=== PATIENT | female | born 1990 | race Caucasian/White ===

== ENCOUNTER 2018-01-29 14:51 | Emergency (ER) | payer OTHER, MEDICAID, SELFPAY ==
--- NOTE | 2018-01-29 14:56 | ED.FEVER ---
HPI - Fever General Stated Complaint: FEVER,NOT FEELING WELL Time Seen by Provider: 01/29/18 14:54 Related Data Previous Rx's Medication Instructions Recorded ferrous sulfate [Iron (ferrous 325 mg PO BID #60 tab 05/25/16 sulfate)] topiramate [Topamax] 200 mg PO QDAY #30 tab 07/09/16 clonidine [Obdsknmc-UJG-2] 0.3 mg TD QWEEK #4 patch 09/03/16 sertraline 200 mg PO QDAY #60 tab 10/13/16 gabapentin [Neurontin] 0 PO BID #90 cap 07/08/17 omeprazole 20 mg PO QDAY #30 tab 07/08/17 trazodone 150 mg PO HS #90 tab 07/08/17 bupropion HCl SR 100 mg tablet,12 100 mg PO DAILY #30 tab 01/11/18 hr sustained-release enalapril maleate 10 mg tablet 30 mg PO Q DAY #90 tab 01/11/18 hydrocodone 5 mg-acetaminophen 325 1 tab PO Q6 PRN #40 tab 01/11/18 mg tablet Allergies Allergy/AdvReac Type Severity Reaction Status Date / Time No Known Allergies Allergy Uncoded 01/11/18 09:51 PFSH Medical History Migraine without status migrainosus, not intractable (Chronic 01/15/16) Essential hypertension (Chronic 03/09/16) Anxiety (Chronic 2011) Clostridium difficile infection (Chronic) Depression (Chronic 2011) Hypertension (Chronic 2014) Migraines (Chronic 2014) C. difficile colitis (Resolved) Pneumonia (Resolved 07/13/13) Preeclampsia in period (Resolved 2014) Vaginal delivery (Resolved) Surgical History Anesthesia (Resolved) History of third molar tooth extraction (Resolved) Status post delivery (Resolved 12/21/15) Status post tubal ligation (Resolved 03/13/16) Social History marital status: unmarried,single number of children: 3 household members: family and children pets and animals: Yes education level: college occupational status: employed leisure activities: art and music other: friends seatbelt use: always water heater temp set < 120 deg: Yes working smoke detector in home: Yes fire extinguisher in home: Yes carbon monox detector in home: No firearms in home: Yes do you feel safe at home: Yes Smoking Status: Current every day smoker substance use type: marijuana during the past year weight has: remained stable well-balanced diet: about half the time daily servings fruits/ve-4 caffeine: Yes eating out: rarely or never Type(s) of exercise: walking frequency: 3-4 times per week duration: 30-45 minutes/day Discharge Plan Departure Prescriptions: No Action ferrous sulfate [Iron (ferrous sulfate)] 325 MG tablet 325 mg PO BID Qty: 60 RF: 0 topiramate [Topamax] 200 MG tablet 200 mg PO QDAY Qty: 30 RF: 0 clonidine [[id number]-JHH-9] 0.3 MG/24 HR patch weekly 0.3 mg TD QWEEK Qty: 4 RF: 12 sertraline 100 MG tablet 200 mg PO QDAY Qty: 60 RF: 3 omeprazole 20 MG tablet,delayed release (DR/EC) 20 mg PO QDAY Qty: 30 RF: 13 trazodone 150 MG tablet 150 mg PO HS Qty: 90 RF: 3 gabapentin [Neurontin] 300 MG capsule PO BID Qty: 90 RF: 6 hydrocodone-acetaminophen [[place]] 5-325 mg tablet 1 tab PO Q6 PRN (Reason: PAIN) Qty: 40 RF: 0 enalapril maleate 10 mg tablet 30 mg PO Q DAY Qty: 90 RF: 1 bupropion HCl 100 mg tablet extended release 12 hr 100 mg PO DAILY Qty: 30 RF: 1
--- NOTE | 2018-01-29 15:03 | ED_ITS ---
HPI - Fever General Chief Complaint: Fever Stated Complaint: FEVER,NOT FEELING WELL Time Seen by Provider: 01/29/18 14:53 Source: patient and family Mode of arrival: ambulatory Limitations: no limitations History of Present Illness HPI Narrative: 27F with longstanding hypertension and chronic pain presents to the emergency department with continued widespread pain. She was sent by the walk-in clinic after she had mentioned that she has had a low-grade fever for the past few weeks and also had neck pain, she was unable to mention that she has also had shoulder pain, elbow pain, hip pain, and foot pain which has been going on for quite some time. She sees Rheumatology for the symptoms and has an upcoming appointment. She had been on a pain control plan that was working quite well for about a year and a half which included oxycodone and even decrease to hydrocodone at the beginning of summer but now is the weather changing she seems to have more pain. She is presenting with a request to help with her pain. She denies headache or blurred vision. She denies any numbness , tingling or weakness. She has had no nausea or vomiting. She states this feels nothing like it. She has had some runny nose and congestion and is just getting over a cough but otherwise no other possible sources for infection. She denies chest pain or shortness of breath. She denies abdominal pain or diarrhea. She denies dysuria, frequency or urgency MD complaint: fever Onset (ago): week(s) Temperature Source: oral Associated symptoms: denies other symptoms Relieving factors: nothing Exacerbating factors: nothing Treatments prior to arrival fever: none Related Data Previous Rx's Medication Instructions Recorded ferrous sulfate [Iron (ferrous 325 mg PO BID #60 tab 05/25/16 sulfate)] topiramate [Topamax] 200 mg PO QDAY #30 tab 07/09/16 clonidine [Gaukvvjf-VQW-1] 0.3 mg TD QWEEK #4 patch 09/03/16 sertraline 200 mg PO QDAY #60 tab 10/13/16 gabapentin [Neurontin] 0 PO BID #90 cap 07/08/17 omeprazole 20 mg PO QDAY #30 tab 07/08/17 trazodone 150 mg PO HS #90 tab 07/08/17 bupropion HCl SR 100 mg tablet,12 100 mg PO DAILY #30 tab 01/11/18 hr sustained-release enalapril maleate 10 mg tablet 30 mg PO Q DAY #90 tab 01/11/18 hydrocodone 5 mg-acetaminophen 325 1 tab PO Q6 PRN #40 tab 01/11/18 mg tablet ketorolac 10 mg PO Q4-6H PRN 2 Days tab 01/29/18 prednisone 10 mg PO DAILY #30 tab 01/29/18 Allergies Allergy/AdvReac Type Severity Reaction Status Date / Time No Known Drug Allergies Allergy Verified 01/29/18 15:51 Review of Systems Review of Systems All systems reviewed & are unremarkable except as noted in HPI and below Constitutional Denies chills, Reports fever(s), Denies lethargy and Denies weakness Eyes Denies change in vision, Denies eye discharge, Denies irritation and Denies loss of vision ENT Ears, Nose, Mouth, and Throat: Denies change in voice, Denies neck pain and Denies sore throat Cardiovascular Denies chest pain, Denies irregular heart rhythm, Denies lightheadedness, Denies palpitations, Denies dyspnea, Denies dyspnea on exertion and Denies orthopnea Respiratory Denies cough, Denies dyspnea, Denies dyspnea on exertion and Denies wheezing Gastrointestinal Gastrointestinal: Denies abdominal pain, Denies change in bowel habits, Denies diarrhea, Denies nausea and Denies vomiting Genitourinary Denies hematuria, Denies flank pain, Denies urinary incontinence and Denies urinary urgency Musculoskeletal Reports arthralgias and Denies neck pain Comments: Widespread joint and muscle pain Integumentary/Breasts Denies pruritus, Denies erythema, Denies rash and Denies wounds Neurologic Denies confusion, Denies loss of vision and Denies weakness Psychiatric Denies anxiety, Denies confusion, Denies depression, Denies homicidal ideation and Denies suicidal ideation Endocrine Denies palpitations Hematologic/Lymphatic Denies easy bruising Allergic/Immunologic Denies wheezing [facility] Medical History Migraine without status migrainosus, not intractable (Chronic 01/15/16) Essential hypertension (Chronic 03/09/16) Anxiety (Chronic 2011) Clostridium difficile infection (Chronic) Depression (Chronic 2011) Hypertension (Chronic 2014) Migraines (Chronic 2014) C. difficile colitis (Resolved) Pneumonia (Resolved 07/13/13) Preeclampsia in period (Resolved 2014) Vaginal delivery (Resolved) Surgical History Anesthesia (Resolved) History of third molar tooth extraction (Resolved) Status post delivery (Resolved 12/21/15) Status post tubal ligation (Resolved 03/13/16) Family History Mother Cancer Hypertension Brain cancer Lung cancer Melanoma Father No problems noted. Social History marital status: unmarried,single number of children: 3 household members: family and children pets and animals: Yes education level: college occupational status: employed leisure activities: art and music other: friends seatbelt use: always water heater temp set < 120 deg: Yes working smoke detector in home: Yes fire extinguisher in home: Yes carbon monox detector in home: No firearms in home: Yes do you feel safe at home: Yes Smoking Status: Current every day smoker substance use type: marijuana during the past year weight has: remained stable well-balanced diet: about half the time daily servings fruits/ve-4 caffeine: Yes eating out: rarely or never Type(s) of exercise: walking frequency: 3-4 times per week duration: 30-45 minutes/day Exam Initial Vital Signs Initial Vital Signs: Vital Signs Temperature 98.3 F 01/29/18 16:04 Pulse Rate 81 01/29/18 16:04 Respiratory Rate 17 01/29/18 16:04 Blood Pressure 155/110 H 01/29/18 16:04 Pulse Oximetry 100 01/29/18 16:04 Const General: cooperative and well developed Nutritional Appearance: well nourished Orientation: alert, awake, oriented x3 and not confused [facility] Head: normocephalic and atraumatic Ears: external ears normal and TM's normal bilaterally Nose: external nose normal and No nasal discharge Face and sinus: sinuses nontender, face symmetric, no sinus tenderness and No dry mucous membranes Mouth: oral mucosae normal and moist mucous membranes Teeth and gingiva: dentition normal Throat: tonsils normal and uvula midline Eyes General: appearance normal, both eyes and all related structures Eyelids: eyelids normal Conjunctivae: conjunctivae normal Sclera: sclerae normal Pupils: PERRL EOM: EOM intact bilaterally Neck Neck: normal visual inspection, trachea midline, No lymphadenopathy, No midline deformity and No JVD Lymphatic: No lymphedema Chest Chest: normal inspection of the chest Resp Effort & Inspection: normal respiratory effort, able to speak in complete sentences, no respiratory distress and no use of accessory muscles Auscultation: clear to auscultation bilaterally, no rales, no rhonchi and no wheezes Cardio Rate: regular rate Rhythm: regular rhythm Heart Sounds: no click, no gallops, no murmurs and no rubs Pulses: normal peripheral pulses GI Inspection: non-distended Palpation: soft, no hepatosplenomegaly, No guarding, No pulsatile mass and No tender Auscultation: normal bowel sounds Back/Spine/Pelvis Back: No CVA tenderness Cervical Spine: cervical ROM normal and No pain with cervical ROM Thoracic/Lumbar Spine: thoracic and lumbar spine normal to inspection Skin General: no rashes or lesions noted, No jaundice and No petechiae Neuro General: alert, oriented x3, gait normal and no focal motor deficits Speech: speech normal Extrem General: full ROM, no clubbing, cyanosis or edema, no pedal edema and no calf tenderness Other: Both feet are tender to touch Psych Appearance: well kempt Mental Status: mental status grossly normal Attitude: cooperative Thought Content: normal and suicidality Judgment: judgment good Course Orders Ordered: ED Orders 01/29/18 16:15 Basic Metabolic Panel Stat C-Reactive Protein Quant Stat Complete Blood Count AUTO DIFF Stat Erythrocyte Sedimentation Rate Stat 01/29/18 16:42 XR chest 2V Stat Discontinued Medications Sodium Chloride (Normal Saline 0.9%) 1,000 mls @ 1,000 mls/hr IV BOLUS ONE Stop: 01/29/18 16:44 Last Admin: 01/29/18 16:08 Dose: 1,000 mls/hr Ketorolac Tromethamine (Toradol) 15 mg IV NOW ONE Stop: 01/29/18 15:46 Last Admin: 01/29/18 16:08 Dose: 15 mg Methylprednisolone (Solu-Medrol 125 Mg Vial) 125 mg IV NOW ONE Stop: 01/29/18 15:46 Last Admin: 01/29/18 16:08 Dose: 125 mg Vital Signs - 8 hr 01/29/18 16:04 01/29/18 17:04 Temperature 98.3 F Pulse Rate 81 74 Respiratory Rate 17 15 Blood Pressure [Right Arm] 155/110 H 142/91 H Pulse Oximetry 100 100 MDM - Fever Medical Records Attestation: I reviewed the patient's medical records. Lab Data Attestation: I reviewed the patient's lab results. Result diagrams: 01/29/18 16:15 01/29/18 16:15 Lab Results 01/29/18 01/29/18 01/29/18 Range/Units 16:15 16:15 16:15 WBC 5.0 (4.5-11.0) X10^3/uL RBC 4.55 (4.0-5.2) X10^6/uL Hgb 11.1 L (12.0-16.0) g/dL Hct 34.1 L (36-46) % MCV 75.0 L (80-100) fL MCH 24.4 L (26-34) PG MCHC 32.6 (30-36) % RDW 16.6 H (11.6-14.8) % Plt Count 269 (150-400) X10^3/uL Neut % (Auto) 60.7 (50-75) % Lymph % (Auto) 29.6 (25-40) % [place] % (Auto) 6.3 (3-14) % Eos % (Auto) 2.3 (2-4) % Baso % (Auto) 1.1 (0-2) % Neut # (Auto) 3000 (2907-9971) /uL ESR 8 (0-20) MM/HR Sodium (137-145) mmol/L Potassium (3.4-5.1) mmol/L Chloride (98-107) mmol/L Carbon Dioxide (22-32) mmol/L BUN (7-17) mg/dL Creatinine (0.52-1.04) mg/dL Estimated GFR (>60) mL/min BUN/Creatinine Ratio (6-22) Glucose (70-100) mg/dL Calcium (8.4-10.2) mg/dL C-Reactive Protein < 0.5 (<1.0) mg/dL 01/29/18 Range/Units 16:15 WBC (4.5-11.0) X10^3/uL RBC (4.0-5.2) X10^6/uL Hgb (12.0-16.0) g/dL Hct (36-46) % MCV (80-100) fL MCH (26-34) PG MCHC (30-36) % RDW (11.6-14.8) % Plt Count (150-400) X10^3/uL Neut % (Auto) (50-75) % Lymph % (Auto) (25-40) % [place] % (Auto) (3-14) % Eos % (Auto) (2-4) % Baso % (Auto) (0-2) % Neut # (Auto) (1023-6768) /uL ESR (0-20) MM/HR Sodium 143 (137-145) mmol/L Potassium 4.0 (3.4-5.1) mmol/L Chloride 105 (98-107) mmol/L Carbon Dioxide 25 (22-32) mmol/L BUN 17 (7-17) mg/dL Creatinine 0.60 (0.52-1.04) mg/dL Estimated GFR > 60.0 (>60) mL/min BUN/Creatinine Ratio 28.3 H (6-22) Glucose 98 (70-100) mg/dL Calcium 9.2 (8.4-10.2) mg/dL C-Reactive Protein (<1.0) mg/dL Imaging Data Chest x-ray: Radiologist's impression: [place] [address] XRay Report Signed Patient: Emily Mariscal EMR#: [id number] : 1990Acct:[id number] Age/Sex: 27 / FDate of Service: 01/29/18 Loc: ED Accession Number: [id number] Procedure: XR chest 2V Ordering Provider: Sanket Nguyen D.O. PROCEDURE: XR CHEST 2V INDICATIONS: Short of breath TECHNIQUE: 2 views of the chest were acquired. COMPARISON: [facility], CHEST 2 VIEW, 12/19/2013, 16:15. [facility], CHEST 1 VIEW, 10/13/2014, 21:59. [facility], CHEST 2 VIEW, 03/30/2017, 10:26. FINDINGS: Surgical changes and devices: None. Lungs and pleura: No pleural effusions or pneumothorax. Lungs are clear. Mediastinum: Mediastinal contours are normal. Heart size is normal. Bones and chest wall: No suspicious bony abnormalities. Soft tissues appear unremarkable. IMPRESSION: No acute cardiopulmonary process is seen. Dictated by: Yordy Granados M.D. on 01/29/2018 at 16:57 Approved by: Yordy Granados M.D. on 01/29/2018 at 16:58 Discharge Plan Departure Patient Disposition: Home Clinical Impression: Chronic pain disorder Discharge Date/Time: 01/29/18 17:45 Interventions: ED Discharge Assessment Last Done: 01/29/18 18:04 Instructions: DI for Foot Pain Activity Restrictions/Additional Instructions: *You have been diagnosed with [ chronic foot pain and history of fever ] *What to do: *Take medications as directed *Follow up with your primary care doctor in a few days and a retread supervisor as scheduled. Please let them both note that you are in the emergency department today so you can perhaps get in sooner or at minimum let them know you were seen *Return to ER if you should have any new, worsening or concerning symptoms Prescriptions: New prednisone 10 mg tablet 10 mg PO DAILY Qty: 30 RF: 0 ketorolac 10 mg tablet 10 mg PO Q4-6H PRN (Reason: pain) 2 Days RF: 0 No Action ferrous sulfate [Iron (ferrous sulfate)] 325 MG tablet 325 mg PO BID Qty: 60 RF: 0 topiramate [Topamax] 200 MG tablet 200 mg PO QDAY Qty: 30 RF: 0 clonidine [Ftsjshku-IMU-1] 0.3 MG/24 HR patch weekly 0.3 mg TD QWEEK Qty: 4 RF: 12 sertraline 100 MG tablet 200 mg PO QDAY Qty: 60 RF: 3 omeprazole 20 MG tablet,delayed release (DR/EC) 20 mg PO QDAY Qty: 30 RF: 13 trazodone 150 MG tablet 150 mg PO HS Qty: 90 RF: 3 gabapentin [Neurontin] 300 MG capsule PO BID Qty: 90 RF: 6 hydrocodone-acetaminophen [[place]] 5-325 mg tablet 1 tab PO Q6 PRN (Reason: PAIN) Qty: 40 RF: 0 enalapril maleate 10 mg tablet 30 mg PO Q DAY Qty: 90 RF: 1 bupropion HCl 100 mg tablet extended release 12 hr 100 mg PO DAILY Qty: 30 RF: 1 Referrals: Shellie Desouza MD [Primary Care Provider] -
[2018-01-29 16:04] VITALS: BP 155/110; PULSE 81; RESP 17; TEMP 36.8; O2SAT 100
[2018-01-29] MEDS: methylPREDNISolone 125 MG/2 ML VIAL IV (16:08)
[2018-01-29] MEDS: SODIUM CHLORIDE 0.9% 1,000 ML 1000 ML IV (16:08)
[2018-01-29] MEDS: KETOROLAC 60 MG/2 ML VIAL 15 MG IV (16:08)
[2018-01-29 16:27] LABS: Add Manual Diff / Slide Review NO; Basophils Percent Auto 1.1 % (0-2); Eosinophils Percent Auto 2.3 % (2-4); Hematocrit 34.1 % (36-46); Hemoglobin 11.1 g/dL (12.0-16.0); Lymphocytes Percent Auto 29.6 % (25-40); Mean Corpuscular HGB Conc 32.6 % (30-36); Mean Corpuscular Hemoglobin 24.4 PG (26-34); Monocytes Percent Auto 6.3 % (3-14); Neutrophils Absolute Auto 3000 /uL (3000-5900); Neutrophils Percent Auto 60.7 % (50-75); Platelet Count 269 X10^3/uL (150-400); Red Blood Cell Count 4.55 X10^6/uL (4.0-5.2); Red Cell Distribution Width 16.6 % (11.6-14.8)
--- NOTE | 2018-01-29 16:27 | PC.NURSE ---
Patient reports increase pain in feet, neck and hands. Has had similar pain for some time and has a consult with rheumatoid specialist.Patient reports fevers over last week and difficulty going to work. Tearful and requesting something to help her pain. Patient took Ibuprofen and hydrocodone this morning
[2018-01-29 16:38] LABS: BUN Creatinine Ratio 28.3 (6-22); Blood Urea Nitrogen 17 mg/dL (7-17); Calcium 9.2 mg/dL (8.4-10.2); Carbon Dioxide 25 mmol/L (22-32); Chloride 105 mmol/L (98-107); Estimated Glomerular Filt Rate > 60.0 mL/min (>60); Glucose 98 mg/dL (70-100); HEMOLYSIS < 15 (0-50); Sodium 143 mmol/L (137-145)
[2018-01-29 16:42] LABS: C-Reactive Protein Quant < 0.5 mg/dL (<1.0)
--- NOTE | 2018-01-29 16:42 | DI.RAD.S_ITS ---
PROCEDURE: XR CHEST 2V INDICATIONS: Short of breath TECHNIQUE: 2 views of the chest were acquired. COMPARISON: [facility], CHEST 2 VIEW, 12/19/2013, 16:15. [facility], CHEST 1 VIEW, 10/13/2014, 21:59. [facility], CHEST 2 VIEW, 03/30/2017, 10:26. FINDINGS: Surgical changes and devices: None. Lungs and pleura: No pleural effusions or pneumothorax. Lungs are clear. Mediastinum: Mediastinal contours are normal. Heart size is normal. Bones and chest wall: No suspicious bony abnormalities. Soft tissues appear unremarkable. IMPRESSION: No acute cardiopulmonary process is seen. Dictated by: Yordy Granados M.D. on 01/29/2018 at 16:57 Approved by: Yordy Granados M.D. on 01/29/2018 at 16:58
[2018-01-29 16:59] LABS: Erythrocyte Sedimentation Rate 8 MM/HR (0-20)
[2018-01-29 17:04] VITALS: BP 142/91; PULSE 74; RESP 15; O2SAT 100
== END 2018-01-29 17:45 | disposition home or self-care (01) ==
PROVIDERS: Emergency Provider Emergency Medicine; Family Provider Family Medicine; PCP Family Medicine
DX: G89.4 Chronic pain syndrome (principal)
CPT/HCPCS: 36591; 71046; 80048; 85025; 85651; 86140; 96361; 96374; 96375; 99283; 99284; J1885; J2930

== ENCOUNTER → 2018-02-11 15:30 | Outpatient (CLI) | payer OTHER, MEDICAID, SELFPAY ==
--- NOTE | 2018-02-11 15:32 | DI.RAD.S_ITS ---
PROCEDURE: XR TOE LT MIN 2V INDICATIONS: Big toe pain, bilateral TECHNIQUE: 3 views of the left great toe(s) acquired. COMPARISON: None. FINDINGS: Bones: There is no acute fracture or dislocation. No suspicious bony lesions. Small radiolucency and well-corticated bony fragment adjacent to plantar aspect of first interphalangeal joint likely represent old avulsion injury. Soft tissues: No suspicious soft tissue densities. IMPRESSION: Possible old avulsion injury involving plantar aspect of first distal phalangeal base. No acute left great toe fracture or dislocation. Dictated by: Lloyd Barry M.D. on 02/11/2018 at 16:25 Approved by: Lloyd Barry M.D. on 02/11/2018 at 16:26
--- NOTE | 2018-02-11 15:32 | DI.RAD.S_ITS ---
PROCEDURE: XR TOE RT MIN 2V INDICATIONS: Big toe pain, bilateral TECHNIQUE: 3 views of the right great toe were acquired. COMPARISON: [facility], CR, XR TOE LT MIN 2V, 02/11/2018, 15:47. FINDINGS: Bones: No fractures or dislocations. No suspicious bony lesions. Soft tissues: No suspicious soft tissue densities. IMPRESSION: Unremarkable radiographic examination of right great toe. Dictated by: Lloyd Barry M.D. on 02/11/2018 at 16:26 Approved by: Lloyd Barry M.D. on 02/11/2018 at 16:29
== END ==
PROVIDERS: PCP Family Medicine; Visit Provider Nurse Practitioner Family
DX: M79.675 Pain in left toe(s) (principal); M79.674 Pain in right toe(s)
CPT/HCPCS: 73660

== ENCOUNTER 2018-12-18 02:31 | Emergency (ER) | payer OTHER, MEDICAID, SELFPAY ==
[2018-12-18 02:35] VITALS: PULSE 98
[2018-12-18 02:38] VITALS: BP 184/115; PULSE 98; RESP 16; TEMP 36.8; O2SAT 98; BMI 29.7
--- NOTE | 2018-12-18 02:39 | ED_ITS ---
HPI - General Adult General Chief complaint: Extremity Problem,Nontraumatic Stated complaint: PINKY TOE/RIGHT FOOT INFECTED Time Seen by Provider: 12/18/18 02:32 Source: patient Mode of arrival: ambulatory Limitations: no limitations History of Present Illness HPI narrative: 28-year-old female here for evaluation of a sore/infection and pain to the little toe of her right foot. Patient states that she noticed a s ore underneath the right toe a few days ago. States that since then the symptoms have gotten worse. She also noticed some redness and warmth to the outside of her right foot. She works at a [place] [employer] [place] and spent most the last several hours on her feet and she does cut off work until the pain is worse. Related Data Home Medications Medication Instructions Recorded Confirmed hydroxychloroquine 200 mg tablet 200 mg PO DAILY tab 03/14/18 10/26/18 Previous Rx's Medication Instructions Recorded ferrous sulfate [Iron (ferrous 325 mg PO BID #60 tab 05/25/16 sulfate)] sertraline 200 mg PO QDAY #60 tab 10/13/16 gabapentin [Neurontin] 0 PO BID #90 cap 07/08/17 enalapril maleate 20 mg tablet 40 mg PO Q DAY #180 tab 05/11/18 clonidine 0.3 mg/24 hr weekly 0.3 mg TRANSDERMAL QWEEK #4 patch 07/13/18 transdermal patch metoprolol tartrate 100 mg tablet 200 mg PO BID #120 tab 07/13/18 amoxicillin 875 mg-potassium 1 tab PO BID #28 tab 10/26/18 clavulanate 125 mg tablet hydrocodone 5 mg-acetaminophen 325 1 tab PO Q6 PRN #40 tab 10/26/18 mg tablet cephalexin [Keflex] 500 mg PO QID 7 Days #28 cap 12/18/18 Allergies Allergy/AdvReac Type Severity Reaction Status Date / Time No Known Drug Allergies Allergy Verified 10/26/18 13:33 Review of Systems Constitutional Denies fever(s) and Denies weakness ENT Ears, Nose, Mouth, and Throat: Denies disequilibrium Musculoskeletal Denies tingling Comments: Right foot pain Integumentary/Breasts Comments: Redness and warmth to the right foot. No drainage. Neurologic Denies tingling, Denies disequilibrium and Denies weakness [facility] Medical History Migraine without status migrainosus, not intractable (Chronic 01/15/16) Essential hypertension (Chronic 03/09/16) Anxiety (Chronic 2011) Clostridium difficile infection (Chronic) Depression (Chronic 2011) Hypertension (Chronic 2014) Migraines (Chronic 2014) C. difficile colitis (Resolved) Pneumonia (Resolved 07/13/13) Preeclampsia in period (Resolved 2014) Vaginal delivery (Resolved) Family History Mother Cancer Hypertension Brain cancer Lung cancer Melanoma Father No problems noted. Social History marital status: unmarried,single number of children: 3 household members: family and children pets and animals: Yes education level: college occupational status: employed leisure activities: art and music other: friends seatbelt use: always water heater temp set < 120 deg: Yes working smoke detector in home: Yes fire extinguisher in home: Yes carbon monox detector in home: No firearms in home: Yes do you feel safe at home: Yes Smoking Status: Current every day smoker alcohol intake: never substance use type: marijuana during the past year weight has: remained stable well-balanced diet: about half the time daily servings fruits/ve-4 caffeine: Yes eating out: rarely or never Type(s) of exercise: walking frequency: 3-4 times per week duration: 30-45 minutes/day Exam Initial Vital Signs Initial Vital Signs: Vital Signs Temperature 98.3 F 12/18/18 02:38 Pulse Rate 98 H 12/18/18 02:38 Respiratory Rate 16 12/18/18 02:38 Blood Pressure 184/115 H 12/18/18 02:38 Pulse Oximetry 98 12/18/18 02:38 Const General: cooperative and well developed Orientation: alert and awake Cardio Pulses: dorsalis pedis present on the right Skin Other: Patient with a small break in the skin under the right little toe at the MTP joint. There is no drainage. She does have redness around this area and extending up to approximately the mid foot mostly on the lateral aspect of the right foot. Is tender to palpation. No active drainage Extrem Other: Right ankle unremarkable. Redness to the right foot tenderness to palpation lateral aspect. Psych Appearance: grossly normal and well kempt Course Orders Ordered: Discontinued Medications Acetaminophen/Codeine Phosphate (Tylenol #3 Prepack) 1 bottle MISC SEEINSTR ONE Stop: 12/18/18 02:40 Last Admin: 12/18/18 02:45 Dose: 1 bottle Cephalexin HCl (Keflex) 500 mg PO NOW ONE Stop: 12/18/18 02:40 Last Admin: 12/18/18 02:45 Dose: 500 mg Vital Signs - 8 hr 12/18/18 02:38 Temperature 98.3 F Pulse Rate 98 H Respiratory Rate 16 Blood Pressure 184/115 H Pulse Oximetry 98 Medical Decision Making MDM Narrative Medical decision making narrative: Patient is neurovascular intact. No signs of an abscess. She does have redness and pain. Short course of pain medication. She was given return precautions and follow-up instructions. She expressed understanding and agreement with plan. Discharge Plan Departure Patient Disposition: Home Clinical Impression: Cellulitis Qualifiers: Site of cellulitis: extremity Site of cellulitis of extremity: lower extremity Laterality: right Qualified Code(s): L03.115 - Cellulitis of right lower limb Instructions: DI for Cellulitis -- Adult Activity Restrictions/Additional Instructions: Keep your foot elevated as much as possible. You can use ice. Take the pain medication as needed. Start taking the antibiotics tomorrow as directed. Retu rn to the emergency department for any new or worsening symptoms. You can shower like normal. You can use soap and water like normal. Do not soak your foot anything until the symptoms resolve Prescriptions: New cephalexin [Keflex] 500 mg capsule 500 mg PO QID 7 Days Qty: 28 RF: 0 No Action hydrocodone-acetaminophen [[place]] 5-325 mg tablet 1 tab PO Q6 PRN (Reason: PAIN) Qty: 40 RF: 0 amoxicillin-pot clavulanate 875-125 mg tablet 1 tab PO BID Qty: 28 RF: 0 ferrous sulfate [Iron (ferrous sulfate)] 325 MG tablet 325 mg PO BID Qty: 60 RF: 0 sertraline 100 MG tablet 200 mg PO QDAY Qty: 60 RF: 3 gabapentin [Neurontin] 300 MG capsule PO BID Qty: 90 RF: 6 hydroxychloroquine [Plaquenil] 200 mg tablet 200 mg PO DAILY RF: 0 enalapril maleate 20 mg tablet 40 mg PO Q DAY Qty: 180 RF: 2 metoprolol tartrate 100 mg tablet 200 mg PO BID Qty: 120 RF: 2 clonidine [Kigywlwu-OCB-6] 0.3 mg/24 hr patch weekly 0.3 mg Transdermal QWEEK Qty: 4 RF: 12 Referrals: Shellie Desouza MD [Primary Care Provider] -
[2018-12-18] MEDS: cephALEXin 250 MG CAPSULE 500 MG PO (02:45)
[2018-12-18] MEDS: CODEINE/APAP 30/300 PREPACK 1 BOTTLE MISC (02:45)
[2018-12-18 02:49] VITALS: BP 159/91
== END 2018-12-18 02:50 | disposition home or self-care (01) ==
PROVIDERS: Emergency Provider Emergency Medicine; PCP Family Medicine
DX: L03.115 Cellulitis of right lower limb (principal)
CPT/HCPCS: 99282; 99283

== ENCOUNTER → 2018-12-20 10:23 | Outpatient (CLI) | payer OTHER, MEDICAID, SELFPAY | PROVIDERS: PCP Family Medicine; Visit Provider Family Medicine | DX: L03.115 Cellulitis of right lower limb (principal) | CPT/HCPCS: 87070; 87077; 87147; 87186; 87205 ==

== ENCOUNTER 2023-08-04 19:00 | Emergency (ER) | payer SELFPAY ==
[2023-08-04 19:07] VITALS: BP 162/109; PULSE 98; RESP 18; TEMP 37.2; O2SAT 100; BMI 24.7
--- NOTE | 2023-08-04 19:57 | PC.NURSE ---
patient has a small lesion on her right forearm. She states that is was a spider bite and she had a red line earlier today that was witnessed on her phone. It is not visible now. She denies other symptoms.
--- NOTE | 2023-08-04 20:33 | ED.SKABFB ---
HPI - Skin/Abscess/Foreign Bdy General Chief complaint: Skin/Abscess/Foreign Body Stated complaint: spider bite with a red line rt wrist Time Seen by Provider: 08/04/23 20:31 Source: patient Mode of arrival: Ambulatory Limitations: no limitations History of Present Illness HPI narrative: 32-year-old female who is here for evaluation of what she states is a spider bite to her right forearm. There were also a couple other spots on her right arm. She was unsure as to how they got there. They are minimally tender to palpation. The 1 that she was concerned about his having some drainage. There is redness around it with some streaking around this area as well. She does not remember any specific trauma. Related Data Home Medications Medication Instructions Recorded Confirmed hydroxychloroquine 200 mg tablet 200 mg PO DAILY 03/14/18 12/20/18 (Plaquenil) Previous Rx's Medication Instructions Recorded ferrous sulfate 325 mg (65 mg 325 mg PO BID #60 tabs 05/25/16 iron) tablet (Iron (ferrous sulfate)) sertraline 100 mg tablet 200 mg (2 x 100 mg) PO QDAY #60 10/13/16 tabs gabapentin 300 mg capsule 0 PO BID #90 caps 07/08/17 (Neurontin) enalapril maleate 20 mg tablet 40 mg (2 x 20 mg) PO Q DAY #180 05/11/18 tabs clonidine 0.3 mg/24 hr weekly 0.3 mg transdermal QWEEK #4 patches 07/13/18 transdermal patch (Pzpwqlpo-VWL-5) metoprolol tartrate 100 mg tablet 200 mg (2 x 100 mg) PO BID #120 07/13/18 tabs amoxicillin 875 mg-potassium 1 tab PO BID #28 tabs 10/26/18 clavulanate 125 mg tablet hydrocodone 5 mg-acetaminophen 325 1 tab PO Q6 PRN PAIN #26 tabs 12/20/18 mg tablet ([place]) cephalexin 500 mg capsule 500 mg PO QID 5 days #20 caps 08/04/23 Allergies Allergy/AdvReac Type Severity Reaction Status Date / Time No Known Drug Allergies Allergy Verified 12/20/18 09:56 Review of Systems Constitutional Constitutional: Reports system reviewed and no additional complaints, except as documented Musculoskeletal Musculoskeletal: Reports system reviewed and no additional complaints, except as documented Integumentary/Breasts Skin/Breast: Reports system reviewed and no additional complaints, except as documented Neurologic Neurologic: Reports system reviewed and no additional complaints, except as documented Patient History Medical History Preeclampsia in period (2014) Anxiety (2011) Depression (2011) Hypertension (2014) Migraines (2014) Pneumonia (07/13/13) Clostridium difficile infection Vaginal delivery Essential hypertension (03/09/16) Migraine without status migrainosus, not intractable (01/15/16) C. difficile colitis Surgical History Anesthesia Status post tubal ligation (03/13/16) History of third molar tooth extraction Status post delivery (12/21/15) Family History Mother Cancer Hypertension Brain cancer Lung cancer Melanoma Father No problems noted. Social History marital status: unmarried,single number of children: 3 household members: family and children pets and animals: Yes education level: college occupational status: employed leisure activities: art and music other: friends seatbelt use: always water heater temp set < 120 deg: Yes working smoke detector in home: Yes fire extinguisher in home: Yes carbon monox detector in home: No firearms in home: Yes do you feel safe at home: Yes Smoking Status: Current every day smoker alcohol intake: never substance use type: marijuana during the past year weight has: remained stable well-balanced diet: about half the time daily servings fruits/ve-4 caffeine: Yes eating out: rarely or never Type(s) of exercise: walking frequency: 3-4 times per week duration: 30-45 minutes/day Smoking Status: Current every day smoker tobacco type: vaping alcohol intake frequency: other Substance Use Type: does not use Exam Initial Vital Signs Initial Vital Signs: Vital Signs Temperature 98.9 F 08/04/23 19:07 Pulse Rate 98 H 08/04/23 19:07 Respiratory Rate 18 08/04/23 19:07 Blood Pressure 162/109 H 08/04/23 19:07 Pulse Oximetry 100 08/04/23 19:07 Oxygen Delivery Method Room Air 08/04/23 19:07 Skin Other: Patient with 3-4 punctate lesions on the dorsum of the right forearm without any surrounding erythema or drainage. She is another lesion that is approximately 0.5 cm round. It does have some clear drainage. Some redness around this area with a small amount of streaking noted with it. Extrem Other: Right wrist right elbow unremarkable. Course Orders Ordered: ED Orders 08/04/23 20:52 Wound Culture and Gram Stain Stat Discontinued Medications Cephalexin HCl (Cephalexin 250 Mg Capsule) 500 mg PO NOW ONE Stop: 08/04/23 20:35 Last Admin: 08/04/23 20:44 Dose: 500 mg Documented By: LUCI Vital Signs Vital signs: Vital Signs - 8 hr 08/04/23 19:07 08/04/23 20:44 Temperature 98.9 F Pulse Rate 98 H 77 Respiratory Rate 18 16 Blood Pressure 162/109 H 159/96 H Pulse Oximetry 100 96 Oxygen Delivery Method Room Air Room Air MDM - Skin/Abscess/Foreign Bdy MDM Narrative Medical decision making narrative: History and physical exam today are consistent with several areas of punctate lesions on the dorsum of her right forearm. One of which does appear to have some surrounding cellulitis. No abscesses noted with the these lesions. No foreign bodies are suspected. Plan will be to place her on antibiotics. Discharge Plan Departure Patient Disposition: Home Clinical Impression: Cellulitis Instructions: DI for Cellulitis -- Adult Activity Restrictions/Additional Instructions: I do recommend that you take all of the antibiotics as directed. You can shower like normal. Contact your primary care doctor for a follow-up. Return to the emergency department for new or worsening symptoms. Prescriptions: New cephalexin 500 mg capsule 500 mg PO QID 5 Days Qty: 20 0RF No Action hydrocodone-acetaminophen [[place]] 5-325 mg tablet 1 tab PO Q6 PRN (Reason: PAIN) Qty: 26 0RF amoxicillin-pot clavulanate 875-125 mg tablet 1 tab PO BID Qty: 28 0RF ferrous sulfate [Iron (ferrous sulfate)] 325 MG tablet 325 mg PO BID Qty: 60 0RF sertraline 100 MG tablet 200 mg PO QDAY Qty: 60 3RF gabapentin [Neurontin] 300 MG capsule 0 PO BID Qty: 90 6RF hydroxychloroquine [Plaquenil] 200 mg tablet 200 mg PO DAILY enalapril maleate 20 mg tablet 40 mg PO Q DAY Qty: 180 2RF metoprolol tartrate 100 mg tablet 200 mg PO BID Qty: 120 2RF clonidine [[id number]-UYJ-4] 0.3 mg/24 hr patch weekly 0.3 mg Transdermal QWEEK Qty: 4 12RF Stand Alone Forms: Patient Portal/API, Work Release Note
[2023-08-04 20:44] VITALS: BP 159/96; PULSE 77; RESP 16; O2SAT 96
[2023-08-04] MEDS: cephALEXin 250 MG CAPSULE 500 MG PO (20:44)
== END 2023-08-04 20:51 | disposition home or self-care (01) ==
PROVIDERS: Emergency Provider Emergency Medicine
DX: L03.113 Cellulitis of right upper limb (principal)
CPT/HCPCS: 87070; 87075; 87147; 87205; 99283

== ENCOUNTER 2024-03-21 17:17 | Emergency (ER) | payer SELFPAY ==
[2024-03-21 17:52] VITALS: TEMP 36.9; BMI 25.0
[2024-03-21 17:54] VITALS: BP 173/117; PULSE 81; RESP 16; O2SAT 100
--- NOTE | 2024-03-21 17:55 | DI.RAD.S_ITS ---
PROCEDURE: XR FOOT RT MIN 3V INDICATIONS: right foot pain no injury TECHNIQUE: 3 views of the foot were acquired. COMPARISON: [facility], , FOOT 3V RIGHT, 11/09/2016, 14:39. FINDINGS: Bones: No fractures or dislocations. No suspicious bony lesions. Soft tissues: No tibiotalar joint effusion. Achilles tendon appears normal. IMPRESSION: No visualized acute fracture or dislocation. However, if clinical concern and/or pain persist, short interval imaging followup in 7-10 days is recommended, as occult injury cannot be definitively excluded. Dictated by: Galilea Lozano M.D. on 03/21/2024 at 18:54 Approved by: Galilea Lozano M.D. on 03/21/2024 at 18:54
--- NOTE | 2024-03-21 22:18 | ED_ITS ---
HPI - Extremity Injury (Lower) General Chief Complaint: Extremity Injury, Lower Stated Complaint: px and swelling in rt foot Time Seen by Provider: 03/21/24 21:04 Source: patient Mode of arrival: Ambulatory History of Present Illness HPI Narrative: 33-year-old female presents for 1 day of pain and swelling at the base of her right foot. Denies trauma. Has been taking ibuprofen and Tylenol at home without relief. Patient states that she works at [employer] and was on her feet all night long. After waking up this morning her pain was much worse and she was unable to bear weight on it without difficulty. She states that this has never happened before. Related Data Home Medications Medication Instructions Recorded Confirmed hydroxychloroquine 200 mg tablet 200 mg PO DAILY 03/14/18 12/20/18 (Plaquenil) Previous Rx's Medication Instructions Recorded ferrous sulfate 325 mg (65 mg 325 mg PO BID #60 tabs 05/25/16 iron) tablet (Iron (ferrous sulfate)) sertraline 100 mg tablet 200 mg (2 x 100 mg) PO QDAY #60 10/13/16 tabs gabapentin 300 mg capsule 0 PO BID #90 caps 07/08/17 (Neurontin) enalapril maleate 20 mg tablet 40 mg (2 x 20 mg) PO Q DAY #180 05/11/18 tabs clonidine 0.3 mg/24 hr weekly 0.3 mg transdermal QWEEK #4 patches 07/13/18 transdermal patch (Ljkckdes-TXP-1) metoprolol tartrate 100 mg tablet 200 mg (2 x 100 mg) PO BID #120 07/13/18 tabs amoxicillin 875 mg-potassium 1 tab PO BID #28 tabs 10/26/18 clavulanate 125 mg tablet hydrocodone 5 mg-acetaminophen 325 1 tab PO Q6 PRN PAIN #26 tabs 12/20/18 mg tablet ([place]) Allergies Allergy/AdvReac Type Severity Reaction Status Date / Time No Known Drug Allergies Allergy Verified 12/20/18 09:56 Patient History Medical History Preeclampsia in period (2014) Anxiety (2011) Depression (2011) Hypertension (2014) Migraines (2014) Pneumonia (07/13/13) Clostridium difficile infection Vaginal delivery Essential hypertension (03/09/16) Migraine without status migrainosus, not intractable (01/15/16) C. difficile colitis Surgical History Anesthesia Status post tubal ligation (03/13/16) History of third molar tooth extraction Status post delivery (12/21/15) Family History Mother Cancer Hypertension Brain cancer Lung cancer Melanoma Father No problems noted. Social History marital status: unmarried,single number of children: 3 household members: family and children pets and animals: Yes education level: college occupational status: employed leisure activities: art and music other: friends seatbelt use: always water heater temp set < 120 deg: Yes working smoke detector in home: Yes fire extinguisher in home: Yes carbon monox detector in home: No firearms in home: Yes do you feel safe at home: Yes Smoking Status: Current every day smoker alcohol intake: never substance use type: marijuana during the past year weight has: remained stable well-balanced diet: about half the time daily servings fruits/ve-4 caffeine: Yes eating out: rarely or never Type(s) of exercise: walking frequency: 3-4 times per week duration: 30-45 minutes/day Smoking Status: Current every day smoker tobacco type: vaping alcohol intake frequency: other Substance Use Type: does not use Exam Initial Vital Signs Initial Vital Signs: Vital Signs Temperature 98.5 F 03/21/24 17:52 Const: Awake, alert, tearful MSK: no deformity, DP pulses intact and equal. Tenderness along base of toes to heel R foot Skin: Warm, Dry, intact, no rashes, no erythema Neuro: AO x3, CN II-XII grossly intact, moves all extremities Course Orders Ordered: Discontinued Medications Hydrocodone Bitart/Acetaminophen (Hydrocodone/Acet 5/325 Prepack) 1 bottle MISC DIRECTED ONE Stop: 03/21/24 22:41 Last Admin: 03/21/24 22:49 Dose: 1 bottle Documented By: HNG Vital Signs Vital signs: Vital Signs - 8 hr 03/21/24 17:52 03/21/24 17:54 Temperature 98.5 F Pulse Rate 81 Respiratory Rate 16 Blood Pressure 173/117 H Pulse Oximetry 100 Oxygen Delivery Method Room Air MDM - Extremity Injury (Lower) Imaging Data Extremity x-ray #1: Radiologist's Impression: PROCEDURE: XR FOOT RT MIN 3V INDICATIONS: right foot pain no injury TECHNIQUE: 3 views of the foot were acquired. COMPARISON: [facility], , FOOT 3V RIGHT, 11/09/2016, 14:39. FINDINGS: Bones: No fractures or dislocations. No suspicious bony lesions. Soft tissues: No tibiotalar joint effusion. Achilles tendon appears normal. IMPRESSION: No visualized acute fracture or dislocation. However, if clinical concern and/or pain persist, short interval imaging followup in 7-10 days is recommended, as occult injury cannot be definitively excluded. Dictated by: Galilea Lozano M.D. on 03/21/2024 at 18:54 Approved by: Galilea Lozano M.D. on 03/21/2024 at 18:54 [facility] Narrative Medical decision making narrative: Atraumatic pain and swelling to the base of the patient's right foot. Possible plantar fasciitis. Patient was counseled to wear supportive shoes or inserts. Counseled to follow rice instructions. Prepack of pain medications given to patient prior to discharge for breakthrough severe pain. Patient was advised to follow up with primary care doctor and if she continues to have pain despite conservative treatment she should follow up with a foot doctor Discharge Plan Departure Patient Disposition: Home Clinical Impression: Acute pain of right foot Instructions: DI for Plantar Fasciitis Activity Restrictions/Additional Instructions: Your X ray today did not show any signs of acute fracture. You may have plantar fasciitis, which is inflammation of the tissues of your foot. Continue to take tylenol and ibuprofen for pain. Elevate your foot and try to keep weight off of it when possible, even using your crutches at home if needed. You has been given a prepack of hydrocodone which you may take at night to help you sleep. If you continued to have pain I recommend following up with either your primary care doctor or a foot doctor Prescriptions: No Action hydrocodone-acetaminophen [[place]] 5-325 mg tablet 1 tab PO Q6 PRN (Reason: PAIN) Qty: 26 0RF amoxicillin-pot clavulanate 875-125 mg tablet 1 tab PO BID Qty: 28 0RF ferrous sulfate [Iron (ferrous sulfate)] 325 MG tablet 325 mg PO BID Qty: 60 0RF sertraline 100 MG tablet 200 mg PO QDAY Qty: 60 3RF gabapentin [Neurontin] 300 MG capsule 0 PO BID Qty: 90 6RF hydroxychloroquine [Plaquenil] 200 mg tablet 200 mg PO DAILY enalapril maleate 20 mg tablet 40 mg PO Q DAY Qty: 180 2RF metoprolol tartrate 100 mg tablet 200 mg PO BID Qty: 120 2RF clonidine [Cjyqtmzw-PYZ-5] 0.3 mg/24 hr patch weekly 0.3 mg Transdermal QWEEK Qty: 4 12RF Referrals: Miscellaneous,Doctor, MD [Primary Care Provider] - Stand Alone Forms: Patient Portal/API/Survey, Work Release Note
[2024-03-21 22:49] VITALS: BP 183/114; PULSE 70; RESP 18; O2SAT 100
[2024-03-21] MEDS: HYDROCODONE/ACET 5/325 PREPACK 1 BOTTLE MISC (22:49)
== END 2024-03-21 22:54 | disposition home or self-care (01) ==
PROVIDERS: Emergency Provider Emergency Medicine
DX: M79.671 Pain in right foot (principal)
CPT/HCPCS: 73630; 99281; 99283